=== PATIENT | female | born 1960 | race African-American/Black ===

== ENCOUNTER → 2016-03-10 | Outpatient (CLI) | payer OTHER ==
[~2016-03-10] MED LIST: ALLEGRA-D 24 H1 EACH PO; AMOXICILLIN500 M2 PO; ASPIRIN81 M1 PO; AVPAK AZITHROM250 M1 PO; BACTRIM DS 8001 TA1 PO; BENADRYL50 MG PO; CELEBREX200 MG PO; CEPHALEXIN500 M1 PO; CLARITIN10 MG PO; FLEXERIL5 MG PO; HYDR12.5C PO; HYDR25T PO; HYDROCODONE BIT1 T11 PO; KENALOG0.1% TP; LIPITOR10 MG PO; LISINOPRIL20 MG PO; LISINOPRIL40 MG PO; LISINOPRIL5 MG PO; METFORMIN500 MG PO; MOTRIN800 MG PO; Motrin,Rufen800 MG PO; NAPROSYN500 MG PO; NEURONTIN100 MG PO; NKHM; NORVASC10 MG PO; PRAVASTATIN SOD10 MG PO; PREDNICOT20 MG PO; PREDNISONE10 MG PO; PREDNISONE20 M1 PO; ROBITUSSIN AC 110 ML PO; ROBITUSSIN5 ML PO; SKELAXIN800 MG PO; VICODIN 5/500 505 MG PO; VITAMIN D50000 I3 PO; ZITHROMAX Z PA250 MG PO; ZOFRAN ODT4 MG SL
== END | disposition home or self-care (01) ==
LOC: RESCLI 02:54
DX: Z00.00 Encounter for general adult medical examination without abnormal findings (principal); I10 Essential (primary) hypertension; K52.9 Noninfective gastroenteritis and colitis, unspecified; E11.9 Type 2 diabetes mellitus without complications; E66.01 Morbid (severe) obesity due to excess calories; Z68.42 Body mass index [BMI] 45.0-49.9, adult

== ENCOUNTER 2016-03-23 19:09 | Emergency (ER) | payer OTHER ==
[~2016-03-23] VITALS: Ht 157.4 cm; Wt 114.3 kg
[~2016-03-23 19:09] MED LIST changes: -ALLEGRA-D 24 H1 EACH PO; -AMOXICILLIN500 M2 PO; -AVPAK AZITHROM250 M1 PO; -CLARITIN10 MG PO; -LISINOPRIL40 MG PO; -PREDNISONE10 MG PO; -PREDNISONE20 M1 PO; -ROBITUSSIN5 ML PO; -VITAMIN D50000 I3 PO
[2016-03-23 19:23] VITALS: BP 159/100
[2016-03-23] MEDS ORDERED: AMOXICILLIN500 M2 PO (20:29)
[2016-03-23] MEDS ORDERED: PREDNISONE20 M1 PO (20:29)
[2016-05-01] MEDS ORDERED: ROBITUSSIN AC 110 ML PO (21:52)
[2016-05-01] MEDS ORDERED: CLARITIN10 MG PO (21:52)
[2016-05-01] MEDS ORDERED: AVPAK AZITHROM250 M1 PO (21:52)
[2016-05-01] MEDS ORDERED: PREDNISONE10 MG PO (21:52)
== END 2016-03-23 20:35 | disposition home or self-care (01) ==
LOC: ED 19:09
DX: J20.9 Acute bronchitis, unspecified (principal); Z98.890 Other specified postprocedural states; Z98.51 Tubal ligation status

== ENCOUNTER 2016-05-19 06:09 | Inpatient (IN) | payer OTHER ==
[~2016-05-19] VITALS: Ht 157.4 cm; Wt 108.4 kg
[~2016-05-19 06:09] MED LIST changes: +AMOXICILLIN500 M2 PO; +AVPAK AZITHROM250 M1 PO; +CLARITIN10 MG PO; +PREDNISONE10 MG PO; +PREDNISONE20 M1 PO
[2016-05-19 08:06] LABS: BILIRUBIN NEGATIVE (NEGATIVE); BLOOD NEGATIVE (NEGATIVE); CLARITY SL CLOUDY (CLEAR); COLOR YELLOW (YELLOW); GLUCOSE NEGATIVE (NEGATIVE); KETONE NEGATIVE (NEGATIVE); LEUKO ESTERASE NEGATIVE (NEGATIVE); NITRITE NEGATIVE (NEGATIVE); PH 5.5 (5.0-9.0); PROTEIN TRACE (NEGATIVE); SPECIFIC GRAVITY 1.025 (1.005-1.030); UROBILINOGEN 0.2 E.U./dl (0.2-1.0)
[2016-05-19 08:11] LABS: BASO % 0.2 % (0.0-1.0); EOS # 0.1 10*3/uL (0.0-0.4); HEMATOCRIT 38.4 % (37.0-47.0); HEMOGLOBIN 12.4 g/dl (12.0-16.0); LYMPH # 0.4 10*3/uL (1.3-4.4); LYMPH % 4.4 % (27.0-41.0); MEAN CELL VOLUME 89.1 fl (81.0-99.0); MEAN CORPUSCULAR HGB 28.8 pg (27.0-31.0); MEAN CORPUSCULAR HGB CONC 32.3 g/dl (33.0-37.0); MONO # 0.4 10*3/uL (0.1-1.0); MONO % 4.2 % (3.0-9.0); NEUT # 8.7 10*3/uL (2.3-7.9); NEUT % 89.9 % (47.0-73.0); PLATELET COUNT AUTOMATED 245 10*3/uL (130-400); RED BLOOD COUNT 4.31 10*6/uL (4.10-5.10); RED CELL DISTRI WIDTH 13.9 % (0-14.5); WHITE BLOOD COUNT 9.7 10*3/uL (4.8-10.8)
[2016-05-19 08:20] LABS: INTERNATIONAL NORM RATIO 0.9 (2.0-3.5)
[2016-05-19 08:28] LABS: ALBUMIN 3.6 gm/dl (3.1-4.5); ALKALINE PHOSPHATASE 85 U/L (45-117); BILIRUBIN, TOTAL 0.8 mg/dl (0.2-1.0); BUN 21 mg/dl (7-24); CARBON DIOXIDE 27 mmol/L (21-32); CHLORIDE 106 mmol/L (98-107); CKMB 2.6 ng/ml (0.5-3.6); CPK 209 U/L (26-192); EST GLOM FILT AFRICAN AMERICAN > 60 ml/min; GLUCOSE 193 mg/dL (65-99); MAGNESIUM 2.1 mg/dL (1.5-2.1); POTASSIUM 4.3 mmol/L (3.5-5.1); SGOT/AST 39 IU/L (3-35); SGPT/ALT 46 U/L (12-78); SODIUM 141 mmol/L (136-145); TOTAL PROTEIN 7.8 gm/dL (6.4-8.2)
[2016-05-19 08:30] LABS: BACTERIA 1+; URINE REFLEX COMMENT NO (NO)
[2016-05-19 08:36] LABS: TROPONIN I < 0.015 ng/ml (<0.045)
[2016-05-19] MEDS ORDERED: LISINOPRIL40 MG PO (11:42)
[2016-05-19] MEDS ORDERED: ALLEGRA-D 24 H1 EACH PO (11:43)
[2016-05-20 06:58] LABS: BASO % 0.6 % (0.0-1.0); EOS # 0.1 10*3/uL (0.0-0.4); EOS % 2.3 % (1.0-4.0); LYMPH # 1.1 10*3/uL (1.3-4.4); LYMPH % 31.1 % (27.0-41.0); MEAN CELL VOLUME 89.2 fl (81.0-99.0); MEAN CORPUSCULAR HGB 29.2 pg (27.0-31.0); MEAN CORPUSCULAR HGB CONC 32.7 g/dl (33.0-37.0); MEAN PLATELET VOLUME 10.3 fl (9.6-12.3); MONO # 0.3 10*3/uL (0.1-1.0); MONO % 7.9 % (3.0-9.0); NEUT # 2.1 10*3/uL (2.3-7.9); NEUT % 57.8 % (47.0-73.0); PLATELET COUNT AUTOMATED 199 10*3/uL (130-400); RED BLOOD COUNT 3.53 10*6/uL (4.10-5.10); RED CELL DISTRI WIDTH 14.4 % (0-14.5); WHITE BLOOD COUNT 3.5 10*3/uL (4.8-10.8)
[2016-05-20 06:59] LABS: HEMATOCRIT 31.5 % (37.0-47.0); HEMOGLOBIN 10.3 g/dl (12.0-16.0)
[2016-05-20 07:06] LABS: HEMOGLOBIN A1c 7.2 % (4.8-5.6)
[2016-05-20 07:24] LABS: ALBUMIN 2.8 gm/dl (3.1-4.5); CARBON DIOXIDE 31 mmol/L (21-32); CHLORIDE 106 mmol/L (98-107); GLUCOSE 168 mg/dL (65-99); SODIUM 142 mmol/L (136-145); TOTAL PROTEIN 6.1 gm/dL (6.4-8.2)
[2016-05-20 07:31] LABS: ALKALINE PHOSPHATASE 61 U/L (45-117); CHOLESTEROL 183 mg/dL (<200); EST GLOM FILT AFRICAN AMERICAN > 60 ml/min; HDL CHOLESTEROL 87 mg/dl (40-60); LDL CHOLESTEROL 87 mg/dL (9-159); PHOSPHOROUS 2.3 mg/dL (2.5-4.9); SGOT/AST 20 IU/L (3-35); SGPT/ALT 32 U/L (12-78); THYROID STIM HORMONE (HS) 0.247 uIU/ml (0.358-4.75); TRIGLYCERIDES 47 mg/dl (<150); VLDL CHOLESTEROL 9 mg/dL (6-40)
[2016-05-20 07:32] LABS: BUN 7 mg/dl (7-24)
[2016-05-20 08:43] LABS: FOLIC ACID 11.37 ng/mL (>5.38)
[2016-05-21 07:06] LABS: BASO % 0.9 % (0.0-1.0); EOS # 0.3 10*3/uL (0.0-0.4); EOS % 7.4 % (1.0-4.0); HEMATOCRIT 32.5 % (37.0-47.0); HEMOGLOBIN 10.6 g/dl (12.0-16.0); LYMPH % 29.5 % (27.0-41.0); MEAN CORPUSCULAR HGB CONC 32.6 g/dl (33.0-37.0); MEAN PLATELET VOLUME 10.2 fl (9.6-12.3); MONO # 0.5 10*3/uL (0.1-1.0); MONO % 13.2 % (3.0-9.0); NEUT # 1.7 10*3/uL (2.3-7.9); NEUT % 48.7 % (47.0-73.0); PLATELET COUNT AUTOMATED 179 10*3/uL (130-400); RED BLOOD COUNT 3.65 10*6/uL (4.10-5.10); WHITE BLOOD COUNT 3.5 10*3/uL (4.8-10.8)
[2016-05-21] MEDS ORDERED: ROBITUSSIN5 ML PO (15:11)
== END 2016-05-21 15:27 | disposition home or self-care (01) | DRG 392 ==
LOC: ED 06:09 → EDHOLD 10:09 → 4E 10:09
PROVIDERS: Emergency Medicine; Student in an Organized Health Care Education/Training Program
DX: K52.9 Noninfective gastroenteritis and colitis, unspecified (principal); E11.42 Type 2 diabetes mellitus with diabetic polyneuropathy; Z68.42 Body mass index [BMI] 45.0-49.9, adult; E11.65 Type 2 diabetes mellitus with hyperglycemia; I10 Essential (primary) hypertension; R82.71 Bacteriuria; E66.9 Obesity, unspecified; Z90.49 Acquired absence of other specified parts of digestive tract; Z98.891 History of uterine scar from previous surgery; Z80.9 Family history of malignant neoplasm, unspecified; Z79.84 Long term (current) use of oral hypoglycemic drugs; Z79.899 Other long term (current) drug therapy

== ENCOUNTER 2016-05-25 16:15 | Inpatient (IN) | payer OTHER ==
[~2016-05-25] VITALS: Ht 157.4 cm; Wt 108.9 kg
--- NOTE | ~2016-05-25 | CON ---
[place], [place] REPORT OF CONSULTATION NAME: LORA AGRAWAL UNIT #: [id number] ROOM: 405 DOCTOR: JOVANY MEANS,ABDULAZIZ BIRTHDATE: [birth year] DOS: 05/26/2016 CARDIOLOGY CONSULTATION REFERRING PHYSICIAN: Dr. Thurman. REASON FOR CONSULTATION: Chest pain. CLINICAL HISTORY: The patient is a 55-year-old patient with history of hypertension, diabetes, dyslipidemia, came to the Emergency Room with intermittent chest pains. She was in the hospital recently was discharged about a week ago where she was admitted for nausea and vomiting. She complained of intermittent chest pains, sharp chest pain in the midsternal area mostly at rest. This pain has been going on for 1-2 months lasts for a few seconds. No radiation, no associated nausea, diaphoresis, no shortness of breath. The pain relieves on its own. She denies any palpitations, PND or orthopnea. No edema. No tingling, numbness or weakness. No hematemesis, no hematuria. No cough or hemoptysis. REVIEW OF SYSTEMS: Review of the 8 systems negative except as mentioned above. PAST MEDICAL HISTORY: 1. Hypertension. 2. Diabetes type 2. 3. Obesity. 4. Dyslipidemia. 5. Peripheral neuropathy. PAST SURGICAL HISTORY: History of , history of cholecystectomy, history of D and C. SOCIAL HISTORY: The patient does not smoke or drink. No illicit drugs. FAMILY HISTORY: Father from cancer. Mother from cancer. ALLERGIES: No known drug allergies. HOME MEDICATIONS: Reviewed. PHYSICAL EXAMINATION: VITAL SIGNS: Blood pressure 140/65, heart rate 60, respiratory rate was 18, weight 108.8 kg, BMI 43.9. GENERAL: Alert, comfortable, in no acute distress. HEENT: Pupils are round and equal. No jaundice. Tongue was moist and pharynx was clear. NECK: Supple, no distended neck veins, no carotid bruit. Thyroid not palpable. CHEST: Symmetrical, nontender. LUNGS: Clear to auscultation bilaterally. HEART: Regular rhythm, no S3, no palpable thrills. ABDOMEN: Obese, nontender. Bowel sounds normal. [place], [place] REPORT OF CONSULTATION NAME: LORA AGRAWAL UNIT #: [id number] ROOM: [facility] DOCTOR: JOVANY MEANS,ABDULAZIZ BIRTHDATE: [birth year] SKIN: Warm and dry. No cyanosis, no clubbing. NEUROLOGIC: The patient is alert, oriented. No focal neurologic deficit. RECTAL: Deferred. GENITOURINARY: Deferred. REVIEW OF THE DIAGNOSTIC TESTS: EKG, labs and rhythm strips reviewed. Cardiac enzymes are unremarkable. IMPRESSION: 1. Chest pain, atypical, myocardial infarction ruled out. 2. Hypertension, currently stable. 3. Diabetes type 2. 4. Morbid obesity. 5. Dyslipidemia. RECOMMENDATIONS: 1. Continue current medications. 2. Lexiscan stress due to her recurrent chest pains. 3. Risk factor modification for diet, exercise, weight loss discussed. 4. Check a 2D echo for LV function and valvular function. 5. Further recommendations based on her above test. The stress test is unremarkable she can be discharged home today. ABDULAZIZ MANZO MD CM:CONSTR:REPORT OF CONSULTATION [id number] 05/27/16 1024 interface
--- NOTE | ~2016-05-25 | ST ---
[place], [place] EXERCISE STRESS TEST REPORT NAME: LORA AGRAWAL [facility] #: [id number] UNIT #: [id number] ROOM: 405 DOCTOR: JOVANY MEANS,ABDULAZIZ BIRTHDATE: [birth year] DOS: 05/26/2016 REASON FOR TEST: Evaluation of shortness of breath. PHYSICAL EXAMINATION NECK: Supple. LUNGS: Clear anteriorly. HEART: Regular rhythm. PROTOCOL: Lexiscan protocol. Maximum heart rate 96, peak blood pressure 138/60. SYMPTOMS: The patient is chest pain free, developed mild shortness of breath and mild chest pain, resolved. EKG: Resting EKG, sinus rhythm. Stress EKG showed no ischemia, no arrhythmias. CONCLUSION: Clinically, the patient developed mild chest pain and shortness of breath, resolved. EKG showed no ischemia. POST-STRESS COMPLICATIONS: None. The patient received a total of 0.4 mg Lexiscan. ABDULAZIZ MANZO MD CM:STRESS:EXERCISE STRESS TEST REPORT [id number] ABDULAZIZ MANZO MD
[~2016-05-25 16:15] MED LIST changes: +ALLEGRA-D 24 H1 EACH PO; +LISINOPRIL40 MG PO; +ROBITUSSIN5 ML PO
[2016-05-25 16:28] VITALS: BP 168/84
[2016-05-25 16:38] LABS: HEMATOCRIT 34.4 % (37.0-47.0); HEMOGLOBIN 11.4 g/dl (12.0-16.0); MEAN CELL VOLUME 87.5 fl (81.0-99.0); MEAN CORPUSCULAR HGB CONC 33.1 g/dl (33.0-37.0); MEAN PLATELET VOLUME 9.6 fl (9.6-12.3); PLATELET COUNT AUTOMATED 274 10*3/uL (130-400); RED BLOOD COUNT 3.93 10*6/uL (4.10-5.10); RED CELL DISTRI WIDTH 13.9 % (0-14.5); WHITE BLOOD COUNT 9.9 10*3/uL (4.8-10.8)
[2016-05-25 16:47] LABS: PROTHROMBIN TIME 10.1 SECONDS (9.0-12.4)
[2016-05-25 16:58] LABS: ALBUMIN 3.5 gm/dl (3.1-4.5); ALKALINE PHOSPHATASE 89 U/L (45-117); BILIRUBIN, TOTAL 0.3 mg/dl (0.2-1.0); BUN 10 mg/dl (7-24); CARBON DIOXIDE 28 mmol/L (21-32); CHLORIDE 107 mmol/L (98-107); CPK 99 U/L (26-192); EST GLOM FILT AFRICAN AMERICAN > 60 ml/min; GLUCOSE 94 mg/dL (65-99); MAGNESIUM 1.9 mg/dL (1.5-2.1); SGOT/AST 44 IU/L (3-35); SGPT/ALT 58 U/L (12-78); SODIUM 143 mmol/L (136-145); TOTAL PROTEIN 7.2 gm/dL (6.4-8.2)
[2016-05-25 17:00] LABS: C-REACTIVE PROTEIN < 0.29 MG/DL (0-0.3); TROPONIN I < 0.015 ng/ml (<0.045)
[2016-05-25 17:02] LABS: ATYPICAL LYMPHS 2 % (0-0); BASOPHIL # 0.1 10*3/uL (0-0.1); BASOPHILS 1 % (0-1); EOSINOPHIL # 0.1 10*3/uL (0-0.4); EOSINOPHILS 1 % (1-4); LYMPHOCYTE # 5.6 10*3/uL (1.3-4.4); MONOCYTE # 0.6 10*3/uL (0.1-1.0); NEUTROPHIL # 3.5 10*3/uL (2.3-7.9); NEUTROPHILS 35 % (47-73); PLATELET SUFFICIENCY NORMAL (NORMAL); TOTAL CELLS COUNTED 100 #CELLS
[2016-05-25 18:13] VITALS: BP 178/75
[2016-05-25 18:43] VITALS: BP 165/73
[2016-05-25 20:00] VITALS: BP 168/58
[2016-05-26] VITALS: BP 106/63; BP 129/52
[2016-05-26 06:47] LABS: HEMOGLOBIN 11.3 g/dl (12.0-16.0); MEAN CELL VOLUME 87.2 fl (81.0-99.0); MEAN CORPUSCULAR HGB CONC 33.2 g/dl (33.0-37.0); MEAN PLATELET VOLUME 9.6 fl (9.6-12.3); PLATELET COUNT AUTOMATED 289 10*3/uL (130-400); WHITE BLOOD COUNT 7.6 10*3/uL (4.8-10.8)
[2016-05-26 06:48] LABS: BUN 8 mg/dl (7-24); CARBON DIOXIDE 27 mmol/L (21-32); CHLORIDE 104 mmol/L (98-107); EST GLOM FILT AFRICAN AMERICAN > 60 ml/min; GLUCOSE 133 mg/dL (65-99); SODIUM 142 mmol/L (136-145)
[2016-05-26 07:58] LABS: ATYPICAL LYMPHS 4 % (0-0); BASOPHIL # 0.1 10*3/uL (0-0.1); BASOPHILS 1 % (0-1); EOSINOPHIL # 0.3 10*3/uL (0-0.4); EOSINOPHILS 4 % (1-4); LYMPHOCYTE # 4.3 10*3/uL (1.3-4.4); MONOCYTE # 0.2 10*3/uL (0.1-1.0); NEUTROPHIL # 2.7 10*3/uL (2.3-7.9); NEUTROPHILS 36 % (47-73); PLATELET SUFFICIENCY NORMAL (NORMAL); TOTAL CELLS COUNTED 100 #CELLS
[2016-05-26 08:00] VITALS: BP 140/65
[2016-05-26 16:00] VITALS: BP 136/71
[2016-05-26] MEDS ORDERED: VITAMIN D50000 I3 PO (17:36)
== END 2016-05-26 18:50 | disposition home or self-care (01) | DRG 313 ==
LOC: ED 16:15 → EDHOLD 17:31 → 4E 18:09
PROVIDERS: Emergency Medicine; Internal Medicine
DX: R07.89 Other chest pain (principal); J18.9 Pneumonia, unspecified organism; E11.42 Type 2 diabetes mellitus with diabetic polyneuropathy; E11.65 Type 2 diabetes mellitus with hyperglycemia; K21.9 Gastro-esophageal reflux disease without esophagitis; F41.9 Anxiety disorder, unspecified; D64.9 Anemia, unspecified; E78.5 Hyperlipidemia, unspecified; I10 Essential (primary) hypertension; E66.01 Morbid (severe) obesity due to excess calories; E55.9 Vitamin D deficiency, unspecified; Z90.49 Acquired absence of other specified parts of digestive tract; Z68.41 Body mass index [BMI] 40.0-44.9, adult; Z80.9 Family history of malignant neoplasm, unspecified

== ENCOUNTER → 2016-06-08 | Outpatient (CLI) | payer OTHER ==
[~2016-06-08] MED LIST changes: +VITAMIN D50000 I3 PO
== END | disposition home or self-care (01) ==
LOC: RESCLI 03:05
DX: E11.65 Type 2 diabetes mellitus with hyperglycemia (principal); I10 Essential (primary) hypertension

== ENCOUNTER → 2016-09-09 | Outpatient (CLI) | payer OTHER | END | disposition home or self-care (01) | LOC: RESCLI 09-07 01:59 | DX: Z00.01 Encounter for general adult medical examination with abnormal findings (principal); R06.01 Orthopnea; R60.0 Localized edema; E11.65 Type 2 diabetes mellitus with hyperglycemia; I10 Essential (primary) hypertension; R19.7 Diarrhea, unspecified; E55.9 Vitamin D deficiency, unspecified; E66.01 Morbid (severe) obesity due to excess calories ==

== ENCOUNTER → 2016-09-17 | Outpatient (CLI) | payer OTHER | END | disposition home or self-care (01) | LOC: LAB 02:13 → CARD 16:00 | DX: I07.1 Rheumatic tricuspid insufficiency (principal); R06.01 Orthopnea; R60.0 Localized edema; E78.5 Hyperlipidemia, unspecified; E11.8 Type 2 diabetes mellitus with unspecified complications; I70.0 Atherosclerosis of aorta ==

== ENCOUNTER → 2016-09-21 | Outpatient (CLI) | payer OTHER | END | disposition home or self-care (01) | LOC: LAB 18:11 | PROVIDERS: Family Medicine | DX: Z00.01 Encounter for general adult medical examination with abnormal findings (principal); R73.09 Other abnormal glucose ==

== ENCOUNTER → 2016-09-30 | Outpatient (CLI) | payer OTHER | END | disposition home or self-care (01) | LOC: RESCLI 02:35 | DX: N89.8 Other specified noninflammatory disorders of vagina (principal); R60.0 Localized edema; E11.65 Type 2 diabetes mellitus with hyperglycemia; I10 Essential (primary) hypertension; E55.9 Vitamin D deficiency, unspecified; R25.2 Cramp and spasm; R19.7 Diarrhea, unspecified; E66.09 Other obesity due to excess calories; Z68.41 Body mass index [BMI] 40.0-44.9, adult ==

== ENCOUNTER 2016-11-28 20:06 | Emergency (ER) | payer OTHER ==
[~2016-11-28] VITALS: Ht 157.4 cm; Wt 108.4 kg
[2016-11-28 20:11] VITALS: BP 176/76
[2016-11-28] MEDS ORDERED: AUGMENTIN 875875 MG PO (20:50)
== END 2016-11-28 21:02 | disposition home or self-care (01) ==
LOC: ED 20:06
DX: J01.00 Acute maxillary sinusitis, unspecified (principal); H65.113 Acute and subacute allergic otitis media (mucoid) (sanguinous) (serous), bilateral; I10 Essential (primary) hypertension; E11.65 Type 2 diabetes mellitus with hyperglycemia; E11.21 Type 2 diabetes mellitus with diabetic nephropathy; Z79.899 Other long term (current) drug therapy

== ENCOUNTER → 2016-12-09 | Outpatient (CLI) | payer OTHER ==
[~2016-12-09] MED LIST changes: +AUGMENTIN 875875 MG PO
== END | disposition home or self-care (01) ==
LOC: RESCLI 00:51
DX: E11.65 Type 2 diabetes mellitus with hyperglycemia (principal); I10 Essential (primary) hypertension; K52.9 Noninfective gastroenteritis and colitis, unspecified; J01.00 Acute maxillary sinusitis, unspecified; E78.00 Pure hypercholesterolemia, unspecified; G25.81 Restless legs syndrome; E55.9 Vitamin D deficiency, unspecified; R60.0 Localized edema; N89.8 Other specified noninflammatory disorders of vagina; E66.01 Morbid (severe) obesity due to excess calories; R25.2 Cramp and spasm

== ENCOUNTER → 2016-12-26 | Outpatient (CLI) | payer OTHER ==
[2016-12-26 09:39] LABS: BASO % 0.5 % (0.0-1.0); EOS # 0.3 10*3/uL (0.0-0.4); EOS % 4.9 % (1.0-4.0); HEMATOCRIT 34.1 % (37.0-47.0); HEMOGLOBIN 11.1 g/dl (12.0-16.0); LYMPH # 2.9 10*3/uL (1.3-4.4); LYMPH % 46.9 % (27.0-41.0); MEAN CELL VOLUME 89.7 fl (81.0-99.0); MEAN CORPUSCULAR HGB 29.2 pg (27.0-31.0); MEAN CORPUSCULAR HGB CONC 32.6 g/dl (33.0-37.0); MEAN PLATELET VOLUME 9.6 fl (9.6-12.3); MONO # 0.5 10*3/uL (0.1-1.0); MONO % 8.2 % (3.0-9.0); NEUT # 2.4 10*3/uL (2.3-7.9); NEUT % 39.3 % (47.0-73.0); PLATELET COUNT AUTOMATED 278 10*3/uL (130-400); RED CELL DISTRI WIDTH 14.6 % (0-14.5); WHITE BLOOD COUNT 6.1 10*3/uL (4.8-10.8)
[2016-12-26 09:55] LABS: ALBUMIN 3.4 gm/dl (3.1-4.5); ALKALINE PHOSPHATASE 95 U/L (45-117); BUN 13 mg/dl (7-24); CHLORIDE 103 mmol/L (98-107); CREATININE 0.77 mg/dL (0.55-1.02); POTASSIUM 4.5 mmol/L (3.5-5.1); SGOT/AST 19 IU/L (3-35); SGPT/ALT 28 U/L (12-78); SODIUM 140 mmol/L (136-145); TOTAL PROTEIN 7.5 gm/dL (6.4-8.2)
== END | disposition home or self-care (01) ==
LOC: LAB 08:32
PROVIDERS: Internal Medicine
DX: Z00.01 Encounter for general adult medical examination with abnormal findings (principal); E11.65 Type 2 diabetes mellitus with hyperglycemia; R79.89 Other specified abnormal findings of blood chemistry

== ENCOUNTER → 2017-01-06 | Outpatient (CLI) | payer OTHER | END | disposition home or self-care (01) | LOC: RESCLI 03:13 | DX: R09.82 Postnasal drip (principal); J02.9 Acute pharyngitis, unspecified; E11.65 Type 2 diabetes mellitus with hyperglycemia; I10 Essential (primary) hypertension; R60.0 Localized edema; E55.9 Vitamin D deficiency, unspecified; D64.9 Anemia, unspecified; E66.09 Other obesity due to excess calories; Z91.048 Other nonmedicinal substance allergy status ==

== ENCOUNTER → 2017-03-27 | Outpatient (CLI) | payer OTHER ==
[2017-03-27 10:48] LABS: BASO % 0.7 % (0.0-1.0); EOS # 0.1 10*3/uL (0.0-0.4); EOS % 2.7 % (1.0-4.0); HEMATOCRIT 35.1 % (37.0-47.0); HEMOGLOBIN 11.6 g/dl (12.0-16.0); LYMPH # 2.4 10*3/uL (1.3-4.4); LYMPH % 54.1 % (27.0-41.0); MEAN CELL VOLUME 87.1 fl (81.0-99.0); MEAN CORPUSCULAR HGB 28.8 pg (27.0-31.0); MONO # 0.3 10*3/uL (0.1-1.0); MONO % 6.7 % (3.0-9.0); NEUT # 1.6 10*3/uL (2.3-7.9); NEUT % 35.6 % (47.0-73.0); PLATELET COUNT AUTOMATED 238 10*3/uL (130-400); RED BLOOD COUNT 4.03 10*6/uL (4.10-5.10); RED CELL DISTRI WIDTH 13.7 % (0-14.5); WHITE BLOOD COUNT 4.5 10*3/uL (4.8-10.8)
[2017-03-27 11:17] LABS: IRON 62 ug/dL (50-170); TOTAL IRON BINDING CAPACITY 308 ug/dl (250-450)
[2017-03-27 11:35] LABS: FERRITIN 73.7 ng/mL (10.0-291.0)
== END | disposition home or self-care (01) ==
LOC: LAB 09:39
PROVIDERS: Internal Medicine
DX: E11.65 Type 2 diabetes mellitus with hyperglycemia (principal); D64.9 Anemia, unspecified

== ENCOUNTER → 2017-04-06 | Outpatient (CLI) | payer OTHER | END | disposition home or self-care (01) | LOC: RESCLI 03:59 | DX: I10 Essential (primary) hypertension (principal); E11.9 Type 2 diabetes mellitus without complications; E66.09 Other obesity due to excess calories ==

== ENCOUNTER → 2017-04-13 | Outpatient (CLI) | payer OTHER | END | disposition home or self-care (01) | LOC: MAMMO 00:31 | DX: Z12.31 Encounter for screening mammogram for malignant neoplasm of breast (principal) ==

== ENCOUNTER 2017-06-09 08:49 | Emergency (ER) | payer OTHER ==
[~2017-06-09] VITALS: Ht 157.4 cm; Wt 112.0 kg
--- NOTE | ~2017-06-09 | EKG ---
[place], [place] ELECTROCARDIOGRAM REPORT NAME: LORA AGRAWAL UNIT #: [id number] ROOM: DOCTOR: ANGE URBAN MD BIRTHDATE: [birth year] DOS: 06/09/2017 TIME: 9:27:33. RATE AND RHYTHM: Normal sinus rhythm at 43 beats per minute. MT interval 156 milliseconds, QRS duration 86 milliseconds. Corrected QT interval is 403 milliseconds, QRS axis is 1. IMPRESSION: Normal sinus rhythm, normal EKG. ANGE URBAN MD CM:EKGRPT:ELECTROCARDIOGRAM REPORT [id number] ANGE URBAN MD
[~2017-06-09 08:49] MED LIST changes: -LEVEMIR FL100 UNIT/1 SQ; -PROAIR HFA8.5 GM INH; -TESSALON PERLE100 M1 PO; -ZITHROMAX250 MG PO
[2017-06-09] MEDS ORDERED: LEVEMIR FL100 UNIT/1 SQ (08:52)
[2017-06-09 09:35] LABS: BASO % 0.6 % (0.0-1.0); EOS # 0.2 10*3/uL (0.0-0.4); EOS % 2.3 % (1.0-4.0); HEMATOCRIT 35.7 % (37.0-47.0); HEMOGLOBIN 11.8 g/dl (12.0-16.0); LYMPH # 2.4 10*3/uL (1.3-4.4); LYMPH % 34.8 % (27.0-41.0); MEAN CELL VOLUME 87.7 fl (81.0-99.0); MEAN CORPUSCULAR HGB CONC 33.1 g/dl (33.0-37.0); MEAN PLATELET VOLUME 9.5 fl (9.6-12.3); MONO # 0.5 10*3/uL (0.1-1.0); MONO % 6.7 % (3.0-9.0); NEUT # 3.8 10*3/uL (2.3-7.9); NEUT % 55.3 % (47.0-73.0); PLATELET COUNT AUTOMATED 232 10*3/uL (130-400); RED BLOOD COUNT 4.07 10*6/uL (4.10-5.10); RED CELL DISTRI WIDTH 14.9 % (0-14.5); WHITE BLOOD COUNT 6.8 10*3/uL (4.8-10.8)
[2017-06-09 09:52] LABS: ALBUMIN 3.4 gm/dl (3.1-4.5); ALKALINE PHOSPHATASE 86 U/L (45-117); BUN 9 mg/dl (7-24); CHLORIDE 102 mmol/L (98-107); CREATININE 0.79 mg/dL (0.55-1.02); POTASSIUM 4.5 mmol/L (3.5-5.1); SGPT/ALT 36 U/L (12-78); SODIUM 140 mmol/L (136-145); TOTAL PROTEIN 7.4 gm/dL (6.4-8.2)
[2017-06-09 10:02] LABS: SGOT/AST 26 IU/L (3-35)
[2017-06-09 10:08] LABS: TROPONIN I < 0.015 ng/ml (<0.045)
[2017-06-09] MEDS ORDERED: PREDNISONE20 M1 PO (10:26)
[2017-06-09] MEDS ORDERED: TESSALON PERLE100 M1 PO (10:26)
[2017-06-09] MEDS ORDERED: PROAIR HFA8.5 GM INH (10:26)
[2017-06-09] MEDS ORDERED: ZITHROMAX250 MG PO (10:26)
[2017-06-09 10:35] VITALS: BP 161/84
== END 2017-06-09 10:36 | disposition home or self-care (01) ==
LOC: ED 08:49
PROVIDERS: Nurse Practitioner Family
DX: J20.9 Acute bronchitis, unspecified (principal); E11.9 Type 2 diabetes mellitus without complications; I10 Essential (primary) hypertension; Z79.899 Other long term (current) drug therapy

== ENCOUNTER → 2017-06-09 | Outpatient (CLI) | payer OTHER ==
[~2017-06-09] MED LIST changes: +LEVEMIR FL100 UNIT/1 SQ; +PROAIR HFA8.5 GM INH; +TESSALON PERLE100 M1 PO; +ZITHROMAX250 MG PO
[2017-06-09 09:12] LABS: BUN 8 mg/dl (7-24); CHLORIDE 102 mmol/L (98-107); CREATININE 0.79 mg/dL (0.55-1.02); POTASSIUM 4.9 mmol/L (3.5-5.1); SODIUM 139 mmol/L (136-145)
== END | disposition home or self-care (01) ==
LOC: LAB 08:20
PROVIDERS: Internal Medicine
DX: I10 Essential (primary) hypertension (principal); R79.89 Other specified abnormal findings of blood chemistry

== ENCOUNTER → 2017-06-29 | Outpatient (CLI) | payer OTHER ==
[~2017-06-29] MED LIST changes: +LEVEMIR FL100 UNIT/1 SQ; +PROAIR HFA8.5 GM INH; +TESSALON PERLE100 M1 PO; +ZITHROMAX250 MG PO
== END | disposition home or self-care (01) ==
LOC: RESCLI 04:13
DX: Z00.01 Encounter for general adult medical examination with abnormal findings (principal); E11.65 Type 2 diabetes mellitus with hyperglycemia; I10 Essential (primary) hypertension; E55.9 Vitamin D deficiency, unspecified; E66.01 Morbid (severe) obesity due to excess calories; Z90.710 Acquired absence of both cervix and uterus

== ENCOUNTER 2017-07-12 16:35 | Emergency (ER) | payer OTHER ==
[~2017-07-12] VITALS: Ht 157.4 cm; Wt 114.3 kg
[2017-07-12 17:52] VITALS: BP 143/59
[2017-07-12 17:53] LABS: BILIRUBIN NEGATIVE (NEGATIVE); BLOOD TRACE-INTACT (NEGATIVE); CLARITY SL CLOUDY (CLEAR); COLOR YELLOW (YELLOW); GLUCOSE NEGATIVE (NEGATIVE); KETONE NEGATIVE (NEGATIVE); LEUKO ESTERASE TRACE (NEGATIVE); NITRITE NEGATIVE (NEGATIVE); PH 5.5 (5.0-9.0); SPECIFIC GRAVITY 1.025 (1.005-1.030); UROBILINOGEN 0.2 E.U./dl (0.2-1.0)
[2017-07-12 17:59] LABS: BACTERIA 3+
[2017-07-12 18:00] LABS: EPITHELIAL CELLS 51-100
[2017-07-12] MEDS ORDERED: FLONASE ALLERG9.9 ML NAS (18:14)
[2017-07-12] MEDS ORDERED: ZOFRAN ODT4 MG SL (18:14)
[2017-07-12] MEDS ORDERED: CLARITIN10 MG PO (18:14)
== END 2017-07-12 18:38 | disposition home or self-care (01) ==
LOC: ED 16:35
PROVIDERS: Physician Assistant
DX: R11.2 Nausea with vomiting, unspecified (principal); Z98.890 Other specified postprocedural states; Z90.49 Acquired absence of other specified parts of digestive tract; Z98.51 Tubal ligation status; Z79.899 Other long term (current) drug therapy; Z79.4 Long term (current) use of insulin

== ENCOUNTER 2017-11-09 19:53 | Emergency (ER) | payer OTHER ==
[~2017-11-09] VITALS: Ht 157.4 cm; Wt 111.6 kg
[~2017-11-09 19:53] MED LIST changes: +FLONASE ALLERG9.9 ML NAS
[2017-11-09 19:58] VITALS: BP 144/87
[2017-11-09 20:43] LABS: BASO % 0.6 % (0.0-1.0); EOS # 0.4 10*3/uL (0.0-0.4); EOS % 5.6 % (1.0-4.0); HEMATOCRIT 34.4 % (37.0-47.0); HEMOGLOBIN 11.8 g/dl (12.0-16.0); LYMPH # 2.8 10*3/uL (1.3-4.4); LYMPH % 39.9 % (27.0-41.0); MEAN CELL VOLUME 91.2 fl (81.0-99.0); MEAN CORPUSCULAR HGB 31.3 pg (27.0-31.0); MEAN CORPUSCULAR HGB CONC 34.3 g/dl (33.0-37.0); MEAN PLATELET VOLUME 9.6 fl (9.6-12.3); MONO # 0.6 10*3/uL (0.1-1.0); NEUT # 3.2 10*3/uL (2.3-7.9); NEUT % 44.8 % (47.0-73.0); PLATELET COUNT AUTOMATED 253 10*3/uL (130-400); RED BLOOD COUNT 3.77 10*6/uL (4.10-5.10); RED CELL DISTRI WIDTH 14.6 % (0-14.5)
[2017-11-09 20:59] LABS: ALBUMIN 3.5 gm/dl (3.1-4.5); ALKALINE PHOSPHATASE 92 U/L (45-117); BUN 11 mg/dl (7-24); CHLORIDE 105 mmol/L (98-107); POTASSIUM 3.9 mmol/L (3.5-5.1); SGOT/AST 23 IU/L (3-35); SGPT/ALT 38 U/L (12-78); SODIUM 141 mmol/L (136-145); TOTAL PROTEIN 7.8 gm/dL (6.4-8.2)
[2017-11-09] MEDS ORDERED: PROAIR HFA8.5 GM INH (21:05)
[2017-11-09] MEDS ORDERED: PREDNISONE50 MG PO (21:05)
[2017-11-09] MEDS ORDERED: AVPAK AZITHROM250 MG PO (21:05)
== END 2017-11-09 21:20 | disposition home or self-care (01) ==
LOC: ED 19:53
PROVIDERS: Nurse Practitioner Family
DX: J20.9 Acute bronchitis, unspecified (principal); R06.02 Shortness of breath; I10 Essential (primary) hypertension; E11.9 Type 2 diabetes mellitus without complications; Z79.899 Other long term (current) drug therapy; Z90.49 Acquired absence of other specified parts of digestive tract; Z79.4 Long term (current) use of insulin

== ENCOUNTER → 2017-12-07 | Outpatient (CLI) | payer OTHER ==
[~2017-12-07] MED LIST changes: +ANAPROX DS550 MG PO; +AVPAK AZITHROM250 MG PO; +BYETTA10 MCG/0.1 SC; +PREDNISONE50 MG PO; +ROBAXIN500 M1 PO
== END | disposition home or self-care (01) ==
LOC: RESCLI 04:17
DX: E11.65 Type 2 diabetes mellitus with hyperglycemia (principal); I10 Essential (primary) hypertension; E55.9 Vitamin D deficiency, unspecified; D64.9 Anemia, unspecified; J40 Bronchitis, not specified as acute or chronic; Z79.899 Other long term (current) drug therapy

== ENCOUNTER → 2017-12-12 | Outpatient (CLI) | payer OTHER ==
[2017-12-12 09:10] LABS: BASO # 0.1 10*3/uL (0.0-0.1); BASO % 0.9 % (0.0-1.0); EOS # 0.4 10*3/uL (0.0-0.4); EOS % 6.8 % (1.0-4.0); HEMATOCRIT 34.8 % (37.0-47.0); HEMOGLOBIN 11.7 g/dl (12.0-16.0); LYMPH # 2.6 10*3/uL (1.3-4.4); LYMPH % 45.9 % (27.0-41.0); MEAN CELL VOLUME 88.5 fl (81.0-99.0); MEAN CORPUSCULAR HGB 29.8 pg (27.0-31.0); MEAN CORPUSCULAR HGB CONC 33.6 g/dl (33.0-37.0); MONO # 0.4 10*3/uL (0.1-1.0); NEUT # 2.2 10*3/uL (2.3-7.9); NEUT % 39.2 % (47.0-73.0); PLATELET COUNT AUTOMATED 240 10*3/uL (130-400); RED BLOOD COUNT 3.93 10*6/uL (4.10-5.10); RED CELL DISTRI WIDTH 13.9 % (0-14.5); WHITE BLOOD COUNT 5.7 10*3/uL (4.8-10.8)
[2017-12-12 09:40] LABS: ALBUMIN 3.1 gm/dl (3.1-4.5); ALKALINE PHOSPHATASE 78 U/L (45-117); BUN 7 mg/dl (7-24); CHLORIDE 106 mmol/L (98-107); CHOLESTEROL 210 mg/dL (<200); CREATININE 0.67 mg/dL (0.55-1.02); HDL CHOLESTEROL 87 mg/dl (40-60); LDL CHOLESTEROL 109 mg/dL (9-159); POTASSIUM 3.9 mmol/L (3.5-5.1); SGOT/AST 17 IU/L (3-35); SGPT/ALT 25 U/L (12-78); SODIUM 143 mmol/L (136-145); TOTAL PROTEIN 6.9 gm/dL (6.4-8.2); TRIGLYCERIDES 72 mg/dl (<150); VLDL CHOLESTEROL 14 mg/dL (6-40)
[2017-12-12 10:11] LABS: VITAMIN D, 25-HYDROXY 24.6 ng/mL (30-100)
== END | disposition home or self-care (01) ==
LOC: LAB 08:51
PROVIDERS: Internal Medicine
DX: Z00.01 Encounter for general adult medical examination with abnormal findings (principal); E11.65 Type 2 diabetes mellitus with hyperglycemia

== ENCOUNTER → 2017-12-23 | Outpatient (CLI) | payer OTHER | END | disposition home or self-care (01) | LOC: RESCLI 02:40 | DX: Z12.4 Encounter for screening for malignant neoplasm of cervix (principal); E78.00 Pure hypercholesterolemia, unspecified; E66.01 Morbid (severe) obesity due to excess calories; J40 Bronchitis, not specified as acute or chronic; E55.9 Vitamin D deficiency, unspecified; I10 Essential (primary) hypertension; E11.65 Type 2 diabetes mellitus with hyperglycemia; Z79.899 Other long term (current) drug therapy; Z88.8 Allergy status to other drugs, medicaments and biological substances ==

== ENCOUNTER → 2017-12-31 | Outpatient (CLI) | payer OTHER | END | disposition home or self-care (01) | LOC: RESCLI 01:01 | DX: I10 Essential (primary) hypertension (principal); E66.01 Morbid (severe) obesity due to excess calories; E11.65 Type 2 diabetes mellitus with hyperglycemia; E55.9 Vitamin D deficiency, unspecified; E78.00 Pure hypercholesterolemia, unspecified; J40 Bronchitis, not specified as acute or chronic; Z79.899 Other long term (current) drug therapy; Z88.8 Allergy status to other drugs, medicaments and biological substances ==

== ENCOUNTER 2018-01-20 00:18 | Emergency (ER) | payer OTHER ==
[~2018-01-20] VITALS: Ht 157.4 cm; Wt 112.0 kg
[~2018-01-20 00:18] MED LIST changes: -ANAPROX DS550 MG PO; -BYETTA10 MCG/0.1 SC; -ROBAXIN500 M1 PO
[2018-01-20 00:37] VITALS: BP 98/52
[2018-01-20] MEDS ORDERED: BYETTA10 MCG/0.1 SC (00:49)
[2018-01-20 00:54] LABS: BASO # 0.1 10*3/uL (0.0-0.1); EOS # 0.4 10*3/uL (0.0-0.4); EOS % 4.5 % (1.0-4.0); HEMATOCRIT 37.1 % (37.0-47.0); HEMOGLOBIN 12.2 g/dl (12.0-16.0); LYMPH # 4.8 10*3/uL (1.3-4.4); LYMPH % 57.4 % (27.0-41.0); MEAN CORPUSCULAR HGB 29.3 pg (27.0-31.0); MEAN CORPUSCULAR HGB CONC 32.9 g/dl (33.0-37.0); MEAN PLATELET VOLUME 9.6 fl (9.6-12.3); MONO # 0.8 10*3/uL (0.1-1.0); MONO % 9.8 % (3.0-9.0); NEUT # 2.3 10*3/uL (2.3-7.9); NEUT % 27.2 % (47.0-73.0); PLATELET COUNT AUTOMATED 258 10*3/uL (130-400); RED BLOOD COUNT 4.17 10*6/uL (4.10-5.10); RED CELL DISTRI WIDTH 13.2 % (0-14.5); WHITE BLOOD COUNT 8.4 10*3/uL (4.8-10.8)
[2018-01-20 00:55] LABS: BILIRUBIN NEGATIVE (NEGATIVE); BLOOD NEGATIVE (NEGATIVE); CLARITY CLEAR (CLEAR); COLOR YELLOW (YELLOW); GLUCOSE 1+ (NEGATIVE); KETONE NEGATIVE (NEGATIVE); LEUKO ESTERASE NEGATIVE (NEGATIVE); NITRITE NEGATIVE (NEGATIVE); SPECIFIC GRAVITY >= 1.030 (1.005-1.030); UROBILINOGEN 0.2 E.U./dl (0.2-1.0)
[2018-01-20 01:10] LABS: ALBUMIN 3.6 gm/dl (3.1-4.5); CREATININE 1.25 mg/dL (0.55-1.02); POTASSIUM 3.9 mmol/L (3.5-5.1); TOTAL PROTEIN 7.4 gm/dL (6.4-8.2)
[2018-01-20 01:11] LABS: BACTERIA 2+; MUCOUS TRACE; RBC 0-2 rbc/hpf (0-2)
[2018-01-20] MEDS ORDERED: ANAPROX DS550 MG PO (01:31)
[2018-01-20] MEDS ORDERED: ROBAXIN500 M1 PO (01:31)
== END 2018-01-20 02:32 | disposition home or self-care (01) ==
LOC: ED 00:18
PROVIDERS: Physician Assistant
DX: M62.838 Other muscle spasm (principal); E86.0 Dehydration; R42 Dizziness and giddiness; R10.9 Unspecified abdominal pain; Z79.899 Other long term (current) drug therapy

== ENCOUNTER 2019-02-28 04:20 | Emergency (ER) | payer OTHER ==
[~2019-02-28] VITALS: Ht 157.4 cm; Wt 114.3 kg
[~2019-02-28 04:20] MED LIST changes: +ANAPROX DS550 MG PO; +BYETTA10 MCG/0.1 SC; +KEFLEX500 M1 PO; +MONISTAT 7 COM1 EACH V; +ROBAXIN500 M1 PO
[2019-02-28] MEDS ORDERED: TESSALON PERLE100 M1 PO (06:24)
== END 2019-02-28 06:49 | disposition home or self-care (01) ==
LOC: ED 04:20
DX: J40 Bronchitis, not specified as acute or chronic (principal); I10 Essential (primary) hypertension; E66.9 Obesity, unspecified; E11.40 Type 2 diabetes mellitus with diabetic neuropathy, unspecified; Z90.49 Acquired absence of other specified parts of digestive tract; Z79.899 Other long term (current) drug therapy; Z79.2 Long term (current) use of antibiotics

== ENCOUNTER → 2019-09-09 | Outpatient (CLI) | payer OTHER ==
[2019-09-09 09:12] LABS: BASO # 0.1 10*3/uL (0.0-0.1); BASO % 0.8 % (0.0-1.0); EOS # 0.2 10*3/uL (0.0-0.4); EOS % 2.4 % (1.0-4.0); HEMATOCRIT 36.9 % (37.0-47.0); LYMPH % 48.1 % (27.0-41.0); MEAN CELL VOLUME 87.2 fl (81.0-99.0); MEAN CORPUSCULAR HGB 28.4 pg (27.0-31.0); MEAN CORPUSCULAR HGB CONC 32.5 g/dl (33.0-37.0); MEAN PLATELET VOLUME 10.4 fl (9.6-12.3); MONO # 0.6 10*3/uL (0.1-1.0); MONO % 9.1 % (3.0-9.0); NEUT # 2.4 10*3/uL (2.3-7.9); NEUT % 39.6 % (47.0-73.0); PLATELET COUNT AUTOMATED 264 10*3/uL (130-400); RED BLOOD COUNT 4.23 10*6/uL (4.10-5.10); RED CELL DISTRI WIDTH 13.7 % (0-14.5); WHITE BLOOD COUNT 6.2 10*3/uL (4.8-10.8)
[2019-09-09 09:22] LABS: ALBUMIN 3.3 gm/dl (3.1-4.5); ALKALINE PHOSPHATASE 93 U/L (45-117); BUN 10 mg/dl (7-24); CHLORIDE 103 mmol/L (98-107); CHOLESTEROL 197 mg/dL (<200); CREATININE 0.88 mg/dL (0.55-1.02); HDL CHOLESTEROL 92 mg/dl (40-60); LDL CHOLESTEROL 93 mg/dL (9-159); POTASSIUM 4.3 mmol/L (3.5-5.1); SGOT/AST 20 IU/L (3-35); SGPT/ALT 23 U/L (12-78); SODIUM 136 mmol/L (136-145); TRIGLYCERIDES 60 mg/dl (<150); VLDL CHOLESTEROL 12 mg/dL (6-40)
[2019-09-09 09:30] LABS: THYROID STIM HORMONE (HS) 0.817 uIU/ml (0.358-4.75)
[2019-09-12 10:07] LABS: CREATININE,URINE 61.9 mg/dL (Not Estab.); MICRO ALBUMIN/CRE RATIO <5 (0-29)
== END | disposition home or self-care (01) ==
LOC: LAB 08:12
PROVIDERS: Nurse Practitioner Family
DX: E11.9 Type 2 diabetes mellitus without complications (principal); I10 Essential (primary) hypertension

== ENCOUNTER → 2020-01-16 | Outpatient (CLI) | payer OTHER | END | disposition home or self-care (01) | LOC: RESCLI 02:22 | PROVIDERS: ATTEND Internal Medicine | DX: E11.9 Type 2 diabetes mellitus without complications (principal); I10 Essential (primary) hypertension; E78.00 Pure hypercholesterolemia, unspecified; E66.01 Morbid (severe) obesity due to excess calories; E55.9 Vitamin D deficiency, unspecified ==

== ENCOUNTER 2020-01-22 10:36 | Emergency (ER) | payer OTHER ==
[2020-01-22 10:50] VITALS: BP 116/64
== END 2020-01-22 11:33 | disposition home or self-care (01) ==
LOC: ED 10:36
DX: M79.10 Myalgia, unspecified site (principal); Z20.828 Contact with and (suspected) exposure to other viral communicable diseases; Z79.899 Other long term (current) drug therapy

== ENCOUNTER → 2020-02-18 | Outpatient (CLI) | payer OTHER ==
[2020-02-18 09:52] LABS: BASO % 0.5 % (0.0-1.0); EOS # 0.1 10*3/uL (0.0-0.4); EOS % 2.5 % (1.0-4.0); HEMATOCRIT 38.2 % (37.0-47.0); LYMPH # 2.9 10*3/uL (1.3-4.4); LYMPH % 53.1 % (27.0-41.0); MEAN CORPUSCULAR HGB 28.3 pg (27.0-31.0); MEAN CORPUSCULAR HGB CONC 32.2 g/dl (33.0-37.0); MEAN PLATELET VOLUME 9.7 fl (9.6-12.3); MONO # 0.4 10*3/uL (0.1-1.0); MONO % 7.2 % (3.0-9.0); NEUT % 36.5 % (47.0-73.0); PLATELET COUNT AUTOMATED 230 10*3/uL (130-400); RED BLOOD COUNT 4.34 10*6/uL (4.10-5.10); RED CELL DISTRI WIDTH 13.6 % (0-14.5); WHITE BLOOD COUNT 5.5 10*3/uL (4.8-10.8)
[2020-02-18 10:10] LABS: ALBUMIN 3.5 gm/dl (3.1-4.5); ALKALINE PHOSPHATASE 76 U/L (45-117); BUN 12 mg/dl (7-24); CHLORIDE 105 mmol/L (98-107); CHOLESTEROL 154 mg/dL (<200); CREATININE 0.78 mg/dL (0.55-1.02); HDL CHOLESTEROL 86 mg/dl (40-60); LDL CHOLESTEROL 57 mg/dL (9-159); POTASSIUM 4.6 mmol/L (3.5-5.1); SGOT/AST 15 IU/L (3-35); SGPT/ALT 25 U/L (12-78); SODIUM 140 mmol/L (136-145); TOTAL PROTEIN 7.2 gm/dL (6.4-8.2); TRIGLYCERIDES 57 mg/dl (<150); VLDL CHOLESTEROL 11 mg/dL (6-40)
== END | disposition home or self-care (01) ==
LOC: LAB 09:29
PROVIDERS: Student in an Organized Health Care Education/Training Program; ATTEND Internal Medicine Nephrology
DX: E11.9 Type 2 diabetes mellitus without complications (principal)

== ENCOUNTER → 2020-02-20 | Outpatient (CLI) | payer OTHER | END | disposition home or self-care (01) | LOC: RESCLI 00:46 | PROVIDERS: ATTEND Internal Medicine | DX: E11.9 Type 2 diabetes mellitus without complications (principal); I10 Essential (primary) hypertension; E55.9 Vitamin D deficiency, unspecified; R00.1 Bradycardia, unspecified; E78.5 Hyperlipidemia, unspecified; J30.2 Other seasonal allergic rhinitis; Z79.899 Other long term (current) drug therapy; Z28.21 Immunization not carried out because of patient refusal; Z98.890 Other specified postprocedural states ==

== ENCOUNTER → 2020-03-25 | Outpatient (CLI) | payer OTHER | END | disposition home or self-care (01) | LOC: RESCLI 00:30 | PROVIDERS: ATTEND Internal Medicine Nephrology | DX: E11.9 Type 2 diabetes mellitus without complications (principal); I10 Essential (primary) hypertension; E55.9 Vitamin D deficiency, unspecified; J40 Bronchitis, not specified as acute or chronic; E78.5 Hyperlipidemia, unspecified; E66.01 Morbid (severe) obesity due to excess calories; Z28.21 Immunization not carried out because of patient refusal; Z79.899 Other long term (current) drug therapy ==